=== PATIENT | male | born 1940 | race Caucasian/White ===

== ENCOUNTER 2017-12-23 16:37 | Emergency (ER) | payer MEDICARE ==
[~2017-12-23] VITALS: Ht 170.2 cm; Wt 70.5 kg
[~2017-12-23 16:37] MED LIST: DIABETES PILL; HYDR-757
[2017-12-23 16:44] VITALS: BP 118/59
[2017-12-23] MEDS ORDERED: FOLI-17 PO (19:31)
[2017-12-23] MEDS ORDERED: DIGO250T PO (19:31)
[2017-12-23] MEDS ORDERED: LISINOPRIL PO (19:31)
[2017-12-23] MEDS ORDERED: ATOR-2 PO (19:31)
[2017-12-23] MEDS ORDERED: SPIR25TA3 PO (19:33)
[2017-12-23] MEDS ORDERED: WARF4TAB65 PO (19:33)
== END 2017-12-23 18:05 ==
LOC: MERGE 16:37 → ED 17:59
DX: Z02.9 Encounter for administrative examinations, unspecified (principal)

== ENCOUNTER 2017-12-23 16:47 | Inpatient (IN) | payer MEDICARE, MEDICAID ==
[~2017-12-23] VITALS: Ht 170.2 cm; Wt 67.8 kg
[2017-12-23] MEDS ORDERED: SODIUM CHLORIDE 0.9% 1,000 ML IV ONE (17:01)
[2017-12-23] MEDS ORDERED: SODIUM CHLORIDE FLUSH 10ML SYR IVF ONE (17:30)
[2017-12-23 17:51] LABS: BASOPHILS # (AUTO) 0.02 x10^3/uL (0-0.1); BASOPHILS % (AUTO) 0 % (0-1); EOSINOPHILS # (AUTO) 0.04 x10^3/uL (0-0.4); EOSINOPHILS % (AUTO) 0 % (1-7); LYMPHOCYTES # (AUTO) 1.08 x10^3/uL (1-3.4); LYMPHOCYTES % (AUTO) 9 % (22-44); MD NO; MEAN CORPUSCULAR HEMOGLOBIN 32.7 pg (27.5-34.5); MEAN CORPUSCULAR HGB CONC 33.7 g/dL (33.2-36.2); MEAN CORPUSCULAR VOLUME 96.9 fL (81-97); MEAN PLATELET VOLUME 7.5 fL (7.4-10.4); MONOCYTES # (AUTO) 1.22 x10^3/uL (0.2-0.8); MONOCYTES % (AUTO) 10 % (2-9); NEUTROPHILS # (AUTO) 9.63 x10^3/uL (1.8-6.8); NEUTROPHILS % (AUTO) 80 % (42-75); PLATELET COUNT 225 x10^3/uL (130-400); RED BLOOD COUNT 4.52 x10^6/uL (4.38-5.82); RED CELL DISTRIBUTION WIDTH 15.2 % (9.4-14.8)
[2017-12-23 17:58] LABS: INTERNATIONAL NORMALIZED RATIO 1.16 (0.93-1.1); PROTHROMBIN TIME 11.9 Seconds (9.6-11.5)
[2017-12-23 18:01] LABS: ALANINE AMINOTRANSFERASE 34 U/L (12-78); ALBUMIN 3.1 g/dL (3.4-5.0); ANION GAP 8 mmol/L (5-15); CALCIUM 8.3 mg/dL (8.5-10.1); CHLORIDE 98 mmol/L (98-107)
[2017-12-23 18:16] LABS: ALKALINE PHOSPHATASE 135 U/L (45-117); BILIRUBIN,TOTAL 2.5 mg/dL (0.2-1.0); CREATININE 0.97 mg/dL (0.7-1.3); THYROID STIMULATING HORMONE 0.828 mIU/L (0.358-3.740); TOTAL PROTEIN 6.8 g/dL (6.4-8.2)
[2017-12-23 18:55] LABS: CULTURE INDICATED? YES; MICROSCOPIC INDICATED
[2017-12-23] MEDS ORDERED: MAGNESIUM SULFATE 2 GM in SODIUM CHLORIDE 0.9% 50 ML IV ONE (19:00)
[2017-12-23] MEDS ORDERED: ATOR-2 PO (19:31)
[2017-12-23] MEDS ORDERED: DIGO250T PO (19:31)
[2017-12-23] MEDS ORDERED: FOLI-17 PO (19:31)
[2017-12-23] MEDS ORDERED: LISINOPRIL PO (19:31)
[2017-12-23] MEDS ORDERED: SPIR25TA3 PO (19:33)
[2017-12-23] MEDS ORDERED: WARF4TAB65 PO (19:33)
[2017-12-23] MEDS ORDERED: PIPERACILLIN/TAZO/PMX 3.375GM 50 ML ONE (19:42)
[2017-12-23] MEDS ORDERED: PIPERACILLIN/TAZO/PMX 3.375GM 50 ML IV ONE (20:00)
[2017-12-23] MEDS ORDERED: ONDANSETRON 2MG/ML, 2ML IVPush PRN (20:00)
[2017-12-23] MEDS ORDERED: BISACODYL 10 MG SUPP PR PRN (20:00)
[2017-12-23] MEDS ORDERED: DOCUSATE 100 MG CAPSULE PO PRN (20:00)
[2017-12-23] MEDS ORDERED: ACETAMINOPHEN 325 MG TABLET PO PRN (20:00)
[2017-12-23] MEDS ORDERED: hydrALAzine 20 MG/ML, 1ML IVPush PRN (20:00)
[2017-12-23 21:21] LABS: FOLATE LEVEL > 20.0 ng/mL (3.1-17.5)
[2017-12-23 21:30] VITALS: BP 106/60
[2017-12-23] MEDS: ATORVASTATIN 80 MG TABLET PO SCH ×2 (22:35→22:57)
[2017-12-23] MEDS: SODIUM CHLORIDE FLUSH 10ML SYR IVF SCH (22:36)
[2017-12-23] MEDS: WARFARIN 5 MG TABLET PO-COUM ONE ×2 (22:36→22:57)
[2017-12-24] MEDS: CEFTRIAXONE PMX 1GM/50ML 50 ML IV SCH (00:56)
[2017-12-24] MEDS: DOXYCYCLINE 100 MG in DEXTROSE 5% 250 ML IV SCH ×2 (01:43→14:03)
[2017-12-24 02:18] VITALS: BP 134/78
[2017-12-24 05:45] LABS: BASOPHILS # (AUTO) 0.03 x10^3/uL (0-0.1); BASOPHILS % (AUTO) 0 % (0-1); EOSINOPHILS # (AUTO) 0.09 x10^3/uL (0-0.4); EOSINOPHILS % (AUTO) 1 % (1-7); LYMPHOCYTES # (AUTO) 1.05 x10^3/uL (1-3.4); LYMPHOCYTES % (AUTO) 11 % (22-44); MD NO; MEAN CORPUSCULAR HEMOGLOBIN 33.1 pg (27.5-34.5); MEAN CORPUSCULAR HGB CONC 34.6 g/dL (33.2-36.2); MEAN CORPUSCULAR VOLUME 95.7 fL (81-97); MONOCYTES # (AUTO) 1.24 x10^3/uL (0.2-0.8); MONOCYTES % (AUTO) 13 % (2-9); NEUTROPHILS % (AUTO) 75 % (42-75); PLATELET COUNT 192 x10^3/uL (130-400); RED BLOOD COUNT 3.97 x10^6/uL (4.38-5.82); RED CELL DISTRIBUTION WIDTH 14.8 % (9.4-14.8)
[2017-12-24 05:50] LABS: INTERNATIONAL NORMALIZED RATIO 1.16 (0.93-1.1); PROTHROMBIN TIME 11.9 Seconds (9.6-11.5)
[2017-12-24 05:54] LABS: ALBUMIN 2.7 g/dL (3.4-5.0); ANION GAP 10 mmol/L (5-15); CALCIUM 7.9 mg/dL (8.5-10.1); CHLORIDE 100 mmol/L (98-107)
[2017-12-24 05:55] VITALS: BP 115/63
[2017-12-24 05:58] LABS: ALANINE AMINOTRANSFERASE 28 U/L (12-78); ALKALINE PHOSPHATASE 112 U/L (45-117); CREATININE 0.79 mg/dL (0.7-1.3); TOTAL PROTEIN 5.9 g/dL (6.4-8.2)
[2017-12-24 07:54] VITALS: BP 94/54
[2017-12-24] MEDS: DIGOXIN 0.25 MG TABLET PO SCH (09:00)
[2017-12-24] MEDS: SPIRONOLACTONE 25 MG TABLET PO SCH (09:00)
[2017-12-24] MEDS: SODIUM CHLORIDE FLUSH 10ML SYR IVF SCH ×2 (09:00→21:17)
[2017-12-24] MEDS ORDERED: TEMPLATE NON-FORMULARY MED. (Warfarin Sodium** 4 MG) PO SCH (09:00)
[2017-12-24] MEDS: FOLIC ACID 1 MG TABLET PO SCH (09:00)
[2017-12-24 12:20] VITALS: BP 107/65
[2017-12-24] MEDS ORDERED: WARFARIN 5 MG TABLET PO-COUM SCH (18:00)
[2017-12-24 20:55] VITALS: BP 105/67
[2017-12-24] MEDS: ATORVASTATIN 80 MG TABLET PO SCH (21:00)
[2017-12-25 01:30] VITALS: BP 105/67
[2017-12-25] MEDS: CEFTRIAXONE PMX 1GM/50ML 50 ML IV SCH (01:33)
[2017-12-25] MEDS: DOXYCYCLINE 100 MG in DEXTROSE 5% 250 ML IV SCH ×2 (02:38→12:24)
[2017-12-25 04:52] VITALS: BP 103/65
[2017-12-25 05:54] LABS: INTERNATIONAL NORMALIZED RATIO 1.19 (0.93-1.1); PROTHROMBIN TIME 12.2 Seconds (9.6-11.5)
[2017-12-25 06:21] LABS: CHLORIDE 98 mmol/L (98-107)
[2017-12-25 06:38] LABS: ALANINE AMINOTRANSFERASE 33 U/L (12-78); ALBUMIN 2.7 g/dL (3.4-5.0); ALKALINE PHOSPHATASE 114 U/L (45-117); ANION GAP 9 mmol/L (5-15); BILIRUBIN,TOTAL 1.5 mg/dL (0.2-1.0); CALCIUM 7.9 mg/dL (8.5-10.1); TOTAL PROTEIN 6.1 g/dL (6.4-8.2)
[2017-12-25 06:40] VITALS: BP 98/59
[2017-12-25] MEDS: FOLIC ACID 1 MG TABLET PO SCH (08:53)
[2017-12-25] MEDS: DIGOXIN 0.25 MG TABLET PO SCH (08:53)
[2017-12-25] MEDS: SODIUM CHLORIDE FLUSH 10ML SYR IVF SCH ×2 (08:53→21:00)
[2017-12-25] MEDS: SPIRONOLACTONE 25 MG TABLET PO SCH (08:53)
[2017-12-25] MEDS: SODIUM CHLORIDE 0.9% 1,000 ML IV SCH (09:48)
[2017-12-25 12:47] VITALS: BP 116/70
[2017-12-25] MEDS: ENOXAPARIN 60 MG/0.6 ML SQ SCH (17:13)
[2017-12-25] MEDS ORDERED: WARFARIN 7.5 MG TABLET PO-COUM ONE (18:00)
[2017-12-25] MEDS: ATORVASTATIN 80 MG TABLET PO SCH (20:00)
[2017-12-25 20:50] VITALS: BP 111/67
[2017-12-26] MEDS: DOXYCYCLINE 100 MG in DEXTROSE 5% 250 ML IV SCH ×2 (00:41→11:55)
[2017-12-26 00:54] VITALS: BP 99/63
[2017-12-26] MEDS: CEFTRIAXONE PMX 1GM/50ML 50 ML IV SCH (01:44)
[2017-12-26] MEDS: ENOXAPARIN 60 MG/0.6 ML SQ SCH ×2 (05:29→17:27)
[2017-12-26 06:32] LABS: INTERNATIONAL NORMALIZED RATIO 1.28 (0.93-1.1); PROTHROMBIN TIME 13.1 Seconds (9.6-11.5)
[2017-12-26 06:45] VITALS: BP 115/67
[2017-12-26] MEDS: SODIUM CHLORIDE 0.9% 1,000 ML IV SCH (08:22)
[2017-12-26] MEDS: DIGOXIN 0.25 MG TABLET PO SCH ×2 (08:22→09:44)
[2017-12-26] MEDS: SPIRONOLACTONE 25 MG TABLET PO SCH ×2 (08:22→09:44)
[2017-12-26] MEDS: SODIUM CHLORIDE FLUSH 10ML SYR IVF SCH ×2 (08:22→20:49)
[2017-12-26] MEDS: FOLIC ACID 1 MG TABLET PO SCH ×2 (08:22→09:44)
[2017-12-26] MEDS: METHYLPHENIDATE 10 MG TABLET PO SCH ×2 (08:22→09:00)
[2017-12-26 12:39] VITALS: BP 111/70
[2017-12-26] MEDS ORDERED: WARFARIN 7.5 MG TABLET PO-COUM ONE (18:00)
[2017-12-26 19:06] VITALS: BP 114/69
[2017-12-26] MEDS: ATORVASTATIN 80 MG TABLET PO SCH (20:49)
[2017-12-27] MEDS: DOXYCYCLINE 100 MG in DEXTROSE 5% 250 ML IV SCH ×2 (00:30→12:14)
[2017-12-27] MEDS: CEFTRIAXONE PMX 1GM/50ML 50 ML IV SCH (01:34)
[2017-12-27] MEDS: SODIUM CHLORIDE 0.9% 1,000 ML IV SCH ×2 (01:35→21:43)
[2017-12-27 02:05] VITALS: BP 108/63
[2017-12-27] MEDS: ENOXAPARIN 60 MG/0.6 ML SQ SCH ×2 (04:35→17:41)
[2017-12-27 06:05] LABS: INTERNATIONAL NORMALIZED RATIO 1.53 (0.93-1.1); PROTHROMBIN TIME 15.6 Seconds (9.6-11.5)
[2017-12-27] MEDS ORDERED: BISACODYL 10 MG SUPP PR ONE (08:00)
[2017-12-27 08:12] VITALS: BP 112/74
[2017-12-27] MEDS: DIGOXIN 0.25 MG TABLET PO SCH (08:53)
[2017-12-27] MEDS: SODIUM CHLORIDE FLUSH 10ML SYR IVF SCH ×2 (08:54→21:43)
[2017-12-27] MEDS: FOLIC ACID 1 MG TABLET PO SCH (08:54)
[2017-12-27] MEDS: METHYLPHENIDATE 10 MG TABLET PO SCH (08:54)
[2017-12-27] MEDS ORDERED: METHYLPHENIDATE 10 MG TABLET PO ONE (13:30)
[2017-12-27 13:38] VITALS: BP 118/83
[2017-12-27] MEDS ORDERED: WARFARIN 7.5 MG TABLET PO-COUM ONE (18:00)
[2017-12-27 20:00] VITALS: BP 122/77
[2017-12-27] MEDS: ATORVASTATIN 80 MG TABLET PO SCH (21:43)
[2017-12-28] MEDS: DOXYCYCLINE 100 MG in DEXTROSE 5% 250 ML IV SCH (00:19)
[2017-12-28] MEDS: CEFTRIAXONE PMX 1GM/50ML 50 ML IV SCH (01:37)
[2017-12-28 02:00] VITALS: BP 145/82
[2017-12-28 05:35] LABS: INTERNATIONAL NORMALIZED RATIO 1.8 (0.93-1.1); PROTHROMBIN TIME 18.3 Seconds (9.6-11.5)
[2017-12-28] MEDS: ENOXAPARIN 60 MG/0.6 ML SQ SCH ×2 (06:17→17:30)
[2017-12-28 08:00] VITALS: BP 103/63
[2017-12-28] MEDS: SODIUM CHLORIDE FLUSH 10ML SYR IVF SCH ×2 (08:47→21:28)
[2017-12-28] MEDS: METHYLPHENIDATE 10 MG TABLET PO SCH (08:47)
[2017-12-28] MEDS: FOLIC ACID 1 MG TABLET PO SCH (08:47)
[2017-12-28] MEDS ORDERED: METHYLPHENIDATE 10 MG TABLET PO SCH (09:00)
[2017-12-28 12:26] VITALS: BP 115/70
[2017-12-28] MEDS: SODIUM CHLORIDE 0.9% 1,000 ML IV SCH (16:30)
[2017-12-28] MEDS: CARVEDILOL 3.125 MG TABLET PO SCH (17:38)
[2017-12-28] MEDS: LEVETIRACETAM 1,000 MG in SODIUM CHLORIDE 0.9% 100 ML IV SCH (17:56)
[2017-12-28] MEDS ORDERED: WARFARIN 7.5 MG TABLET PO-COUM ONE (18:00)
[2017-12-28] MEDS: ATORVASTATIN 80 MG TABLET PO SCH (21:28)
[2017-12-29] MEDS: LEVETIRACETAM 1,000 MG in SODIUM CHLORIDE 0.9% 100 ML IV SCH ×2 (04:56→17:53)
[2017-12-29 04:59] LABS: INTERNATIONAL NORMALIZED RATIO 1.84 (0.93-1.1); PROTHROMBIN TIME 18.7 Seconds (9.6-11.5)
[2017-12-29] MEDS ORDERED: ENOXAPARIN 100 MG/ML ONE (05:18)
[2017-12-29] MEDS: ENOXAPARIN 60 MG/0.6 ML SQ SCH ×2 (05:46→17:30)
[2017-12-29] MEDS: CARVEDILOL 3.125 MG TABLET PO SCH ×2 (05:47→17:53)
[2017-12-29] MEDS: SODIUM CHLORIDE 0.9% 1,000 ML IV SCH (08:09)
[2017-12-29] MEDS: METHYLPHENIDATE 10 MG TABLET PO SCH (09:00)
[2017-12-29] MEDS: FOLIC ACID 1 MG TABLET PO SCH (09:00)
[2017-12-29] MEDS: SODIUM CHLORIDE FLUSH 10ML SYR IVF SCH ×2 (17:47→21:10)
[2017-12-29] MEDS ORDERED: WARFARIN 10 MG TABLET PO-COUM ONE (18:00)
[2017-12-29] MEDS: ATORVASTATIN 80 MG TABLET PO SCH (21:09)
[2017-12-30] MEDS: SODIUM CHLORIDE 0.9% 1,000 ML IV SCH ×2 (02:23→09:06)
[2017-12-30] MEDS: LEVETIRACETAM 1,000 MG in SODIUM CHLORIDE 0.9% 100 ML IV SCH (04:54)
[2017-12-30 05:00] VITALS: BP 94/48
[2017-12-30 05:05] LABS: INTERNATIONAL NORMALIZED RATIO 2.85 (0.93-1.1); PROTHROMBIN TIME 28.8 Seconds (9.6-11.5)
[2017-12-30 05:08] LABS: ANION GAP 6 mmol/L (5-15); CALCIUM 7.9 mg/dL (8.5-10.1); CHLORIDE 107 mmol/L (98-107); CREATININE 0.59 mg/dL (0.7-1.3)
[2017-12-30 05:12] LABS: BASOPHILS # (AUTO) 0.07 x10^3/uL (0-0.1); BASOPHILS % (AUTO) 1 % (0-1); EOSINOPHILS # (AUTO) 0.56 x10^3/uL (0-0.4); EOSINOPHILS % (AUTO) 8 % (1-7); LYMPHOCYTES # (AUTO) 1.47 x10^3/uL (1-3.4); LYMPHOCYTES % (AUTO) 21 % (22-44); MD NO; MEAN CORPUSCULAR HEMOGLOBIN 33.4 pg (27.5-34.5); MEAN CORPUSCULAR HGB CONC 34.4 g/dL (33.2-36.2); MONOCYTES # (AUTO) 0.66 x10^3/uL (0.2-0.8); MONOCYTES % (AUTO) 9 % (2-9); NEUTROPHILS # (AUTO) 4.28 x10^3/uL (1.8-6.8); NEUTROPHILS % (AUTO) 61 % (42-75); PLATELET COUNT 211 x10^3/uL (130-400); RED BLOOD COUNT 3.66 x10^6/uL (4.38-5.82); RED CELL DISTRIBUTION WIDTH 15.1 % (9.4-14.8)
[2017-12-30] MEDS ORDERED: ENOXAPARIN 100 MG/ML ONE (06:08)
[2017-12-30] MEDS: ENOXAPARIN 60 MG/0.6 ML SQ SCH (06:10)
[2017-12-30] MEDS ORDERED: SODIUM CHLORIDE 0.9%, 500ML IVBOLUS ONE ×2 (07:30→09:30)
[2017-12-30] MEDS: SODIUM CHLORIDE FLUSH 10ML SYR IVF SCH ×2 (09:05→21:07)
[2017-12-30] MEDS: LEVETIRACETAM 500 MG in SODIUM CHLORIDE 0.9% 100 ML IV SCH (16:50)
[2017-12-30] MEDS ORDERED: WARFARIN 5 MG TABLET PO-COUM ONE (18:00)
[2017-12-30] MEDS: ATORVASTATIN 80 MG TABLET PO SCH (21:07)
[2017-12-31] MEDS: LEVETIRACETAM 500 MG in SODIUM CHLORIDE 0.9% 100 ML IV SCH (04:37)
[2017-12-31] MEDS: SODIUM CHLORIDE 0.9% 1,000 ML IV SCH (04:37)
[2017-12-31 04:48] LABS: INTERNATIONAL NORMALIZED RATIO 4.05 (0.93-1.1); PROTHROMBIN TIME 40.6 Seconds (9.6-11.5)
[2017-12-31 06:23] VITALS: BP 94/68
[2017-12-31] MEDS: LEVETIRACETAM 500 MG TABLET PO SCH ×2 (09:27→20:57)
[2017-12-31] MEDS: SODIUM CHLORIDE FLUSH 10ML SYR IVF SCH ×2 (09:27→20:57)
[2017-12-31] MEDS: FOLIC ACID 1 MG TABLET NG SCH (09:27)
[2017-12-31 13:05] VITALS: BP 106/64
[2017-12-31 19:26] VITALS: BP 120/77
[2017-12-31] MEDS: ATORVASTATIN 80 MG TABLET PO SCH (20:57)
[2017-12-31 23:02] VITALS: BP 110/67
[2018-01-01 01:05] VITALS: BP 118/75
[2018-01-01] MEDS: SODIUM CHLORIDE 0.9% 1,000 ML IV SCH (04:29)
[2018-01-01 05:12] LABS: INTERNATIONAL NORMALIZED RATIO 2.55 (0.93-1.1); PROTHROMBIN TIME 25.8 Seconds (9.6-11.5)
[2018-01-01 07:11] VITALS: BP 147/93
[2018-01-01] MEDS: FOLIC ACID 1 MG TABLET NG SCH (08:25)
[2018-01-01] MEDS: LEVETIRACETAM 500 MG TABLET PO SCH ×2 (08:26→20:33)
[2018-01-01] MEDS: SODIUM CHLORIDE FLUSH 10ML SYR IVF SCH ×2 (08:27→20:33)
[2018-01-01 12:38] VITALS: BP 108/69
[2018-01-01] MEDS ORDERED: WARFARIN 2 MG TABLET PO-COUM ONE (18:00)
[2018-01-01 19:19] VITALS: BP 112/64
[2018-01-01] MEDS: ATORVASTATIN 80 MG TABLET PO SCH (20:33)
[2018-01-02 01:08] VITALS: BP 107/70
[2018-01-02] MEDS: POLYETHYLENE GLYCOL 17 GM PACKET PO PRN (03:10)
[2018-01-02 05:10] LABS: INTERNATIONAL NORMALIZED RATIO 1.52 (0.93-1.1); PROTHROMBIN TIME 15.5 Seconds (9.6-11.5)
[2018-01-02 05:15] LABS: ANION GAP 5 mmol/L (5-15); CALCIUM 7.9 mg/dL (8.5-10.1); CHLORIDE 98 mmol/L (98-107)
[2018-01-02 05:16] LABS: CREATININE 0.56 mg/dL (0.7-1.3)
[2018-01-02 05:24] LABS: BASOPHILS # (AUTO) 0.04 x10^3/uL (0-0.1); BASOPHILS % (AUTO) 1 % (0-1); EOSINOPHILS # (AUTO) 0.52 x10^3/uL (0-0.4); EOSINOPHILS % (AUTO) 6 % (1-7); LYMPHOCYTES # (AUTO) 1.18 x10^3/uL (1-3.4); LYMPHOCYTES % (AUTO) 13 % (22-44); MD NO; MEAN CORPUSCULAR HEMOGLOBIN 32.9 pg (27.5-34.5); MEAN CORPUSCULAR HGB CONC 34.1 g/dL (33.2-36.2); MEAN CORPUSCULAR VOLUME 96.5 fL (81-97); MEAN PLATELET VOLUME 7.4 fL (7.4-10.4); MONOCYTES # (AUTO) 0.99 x10^3/uL (0.2-0.8); MONOCYTES % (AUTO) 11 % (2-9); NEUTROPHILS # (AUTO) 6.47 x10^3/uL (1.8-6.8); NEUTROPHILS % (AUTO) 70 % (42-75); PLATELET COUNT 223 x10^3/uL (130-400); RED BLOOD COUNT 3.88 x10^6/uL (4.38-5.82)
[2018-01-02 06:55] VITALS: BP 116/65
[2018-01-02] MEDS: SODIUM CHLORIDE FLUSH 10ML SYR IVF SCH ×2 (09:00→23:01)
[2018-01-02] MEDS: LEVETIRACETAM 500 MG TABLET PO SCH ×2 (10:13→22:43)
[2018-01-02] MEDS: FOLIC ACID 1 MG TABLET NG SCH (10:13)
[2018-01-02 12:46] VITALS: BP 107/67
[2018-01-02] MEDS ORDERED: PHENYTOIN SODIUM 1,000 MG in SODIUM CHLORIDE 0.9% 100 ML IV ONE (13:00)
[2018-01-02] MEDS ORDERED: FILTER 0.22 MICRON FOR PHENYTOIN IV PRN (13:30)
[2018-01-02] MEDS ORDERED: WARFARIN 7.5 MG TABLET PO-COUM ONE (18:00)
[2018-01-02 19:25] VITALS: BP 97/66
[2018-01-02] MEDS ORDERED: PHENYTOIN 100 MG CAPSULE PO SCH (21:00)
[2018-01-02] MEDS ORDERED: PHENYTOIN 125 MG/5 ML ORAL SUSP PO SCH (21:00)
[2018-01-02] MEDS: ATORVASTATIN 80 MG TABLET PO SCH (22:43)
[2018-01-02] MEDS: LORazepam 2 MG/ML, 1ML IVPush PRN (23:01)
[2018-01-02 23:35] LABS: ALANINE AMINOTRANSFERASE 55 U/L (12-78); ALBUMIN 2.5 g/dL (3.4-5.0); ANION GAP 5 mmol/L (5-15); CALCIUM 8.1 mg/dL (8.5-10.1); CHLORIDE 100 mmol/L (98-107); CREATININE 0.56 mg/dL (0.7-1.3)
[2018-01-02 23:36] LABS: BASOPHILS # (AUTO) 0.04 x10^3/uL (0-0.1); BASOPHILS % (AUTO) 0 % (0-1); EOSINOPHILS # (AUTO) 0.39 x10^3/uL (0-0.4); EOSINOPHILS % (AUTO) 4 % (1-7); LYMPHOCYTES # (AUTO) 1.27 x10^3/uL (1-3.4); LYMPHOCYTES % (AUTO) 13 % (22-44); MD NO; MEAN CORPUSCULAR HEMOGLOBIN 32.8 pg (27.5-34.5); MEAN CORPUSCULAR HGB CONC 33.7 g/dL (33.2-36.2); MEAN CORPUSCULAR VOLUME 97.2 fL (81-97); MEAN PLATELET VOLUME 7.1 fL (7.4-10.4); MONOCYTES # (AUTO) 0.88 x10^3/uL (0.2-0.8); MONOCYTES % (AUTO) 9 % (2-9); NEUTROPHILS # (AUTO) 7.09 x10^3/uL (1.8-6.8); NEUTROPHILS % (AUTO) 73 % (42-75); PLATELET COUNT 285 x10^3/uL (130-400); RED BLOOD COUNT 3.89 x10^6/uL (4.38-5.82); RED CELL DISTRIBUTION WIDTH 14.9 % (9.4-14.8)
[2018-01-02 23:37] LABS: ALKALINE PHOSPHATASE 129 U/L (45-117); BILIRUBIN,TOTAL 0.5 mg/dL (0.2-1.0); TOTAL PROTEIN 5.6 g/dL (6.4-8.2)
[2018-01-03] MEDS ORDERED: LEVETIRACETAM 1,000 MG in SODIUM CHLORIDE 0.9% 100 ML IV SCH (00:30)
[2018-01-03] MEDS ORDERED: PROPOFOL 100 ML IV ONE (00:40)
[2018-01-03] MEDS ORDERED: SODIUM CHLORIDE 0.9% 1,000ML IVBOLUS ONE ×2 (01:00→05:30)
[2018-01-03] MEDS ORDERED: LIDOCAINE-MPF 1%, 2ML ENDO PRN (01:00)
[2018-01-03] MEDS ORDERED: LACTULOSE 20 GM/30 ML UDC NG PRN (01:00)
[2018-01-03] MEDS ORDERED: SENNA/DOCUSATE TABLET NG PRN (01:00)
[2018-01-03] MEDS ORDERED: SENNOSIDES 8.8 MG/5 ML ORAL SOL NG PRN (01:00)
[2018-01-03] MEDS ORDERED: BISACODYL 10 MG SUPP PR PRN (01:00)
[2018-01-03] MEDS ORDERED: PHARMACY MAY ADJ FOR RENAL FX MC SCH (01:00)
[2018-01-03] MEDS: FENTANYL PF 100 MCG/2ML IVPush PRN (01:13)
[2018-01-03] MEDS: ALBUTEROL/IPRATROPIUM 2.5MG/0.5MG, 3 ML INLINE SCH ×6 (01:40→23:04)
[2018-01-03] MEDS: PROPOFOL 100 ML IV PRN ×2 (01:47→18:25)
[2018-01-03] MEDS: AMPICILLIN/SULBACTAM 3 GM in SODIUM CHLORIDE 0.9% 100 ML IV SCH ×4 (02:12→18:25)
[2018-01-03 04:00] VITALS: BP 102/69
[2018-01-03 05:51] LABS: BASOPHILS # (AUTO) 0.05 x10^3/uL (0-0.1); BASOPHILS % (AUTO) 1 % (0-1); EOSINOPHILS % (AUTO) 4 % (1-7); LYMPHOCYTES # (AUTO) 1.55 x10^3/uL (1-3.4); LYMPHOCYTES % (AUTO) 14 % (22-44); MD NO; MEAN CORPUSCULAR HEMOGLOBIN 32.6 pg (27.5-34.5); MEAN CORPUSCULAR HGB CONC 33.7 g/dL (33.2-36.2); MEAN CORPUSCULAR VOLUME 96.8 fL (81-97); MEAN PLATELET VOLUME 7.2 fL (7.4-10.4); MONOCYTES # (AUTO) 1.13 x10^3/uL (0.2-0.8); MONOCYTES % (AUTO) 10 % (2-9); NEUTROPHILS # (AUTO) 7.95 x10^3/uL (1.8-6.8); NEUTROPHILS % (AUTO) 72 % (42-75); PLATELET COUNT 246 x10^3/uL (130-400); RED BLOOD COUNT 3.92 x10^6/uL (4.38-5.82); RED CELL DISTRIBUTION WIDTH 15.1 % (9.4-14.8)
[2018-01-03 05:59] LABS: ALANINE AMINOTRANSFERASE 51 U/L (12-78); ALBUMIN 2.5 g/dL (3.4-5.0); ANION GAP 7 mmol/L (5-15); CALCIUM 8.1 mg/dL (8.5-10.1); CHLORIDE 102 mmol/L (98-107); CREATININE 0.69 mg/dL (0.7-1.3)
[2018-01-03 06:01] LABS: INTERNATIONAL NORMALIZED RATIO 1.35 (0.93-1.1); PROTHROMBIN TIME 13.8 Seconds (9.6-11.5)
[2018-01-03 06:02] LABS: ALKALINE PHOSPHATASE 113 U/L (45-117); BILIRUBIN,TOTAL 0.7 mg/dL (0.2-1.0); TOTAL PROTEIN 5.6 g/dL (6.4-8.2)
[2018-01-03] MEDS ORDERED: MIDAZOLAM 1 MG/ML, 5ML ONE ×2 (08:00→13:32)
[2018-01-03] MEDS ORDERED: SUCCINYLCHOLINE 20 MG/ML, 10ML ONE (08:00)
[2018-01-03] MEDS: FOLIC ACID 1 MG TABLET NG SCH (08:26)
[2018-01-03] MEDS: SODIUM CHLORIDE FLUSH 10ML SYR IVF SCH ×2 (08:26→20:10)
[2018-01-03] MEDS: PANTOPRAZOLE 40 MG IV IV SCH (08:26)
[2018-01-03] MEDS: LEVETIRACETAM 750 MG in SODIUM CHLORIDE 0.9% 100 ML IV SCH ×2 (12:34→23:33)
[2018-01-03] MEDS ORDERED: MIDAZOLAM 1 MG/ML, 5ML IVPush ONE (13:30)
[2018-01-03] MEDS ORDERED: GADOBUTROL 7.5 MMOL/7.5 ML VIAL ONE (14:11)
[2018-01-03] MEDS ORDERED: WARFARIN 7.5 MG TABLET PO-COUM ONE (18:00)
[2018-01-03] MEDS ORDERED: LACTATED RINGERS 1,000 ML IVBOLUS ONE (19:30)
[2018-01-03] MEDS: ATORVASTATIN 80 MG TABLET PO SCH (20:09)
[2018-01-04] MEDS: AMPICILLIN/SULBACTAM 3 GM in SODIUM CHLORIDE 0.9% 100 ML IV SCH ×4 (01:21→18:12)
[2018-01-04] MEDS: ALBUTEROL/IPRATROPIUM 2.5MG/0.5MG, 3 ML INLINE SCH ×6 (03:00→22:24)
[2018-01-04] MEDS: LORazepam 2 MG/ML, 1ML IVPush PRN (03:45)
[2018-01-04 04:43] LABS: BASOPHILS # (AUTO) 0.02 x10^3/uL (0-0.1); BASOPHILS % (AUTO) 0 % (0-1); EOSINOPHILS # (AUTO) 0.26 x10^3/uL (0-0.4); EOSINOPHILS % (AUTO) 3 % (1-7); LYMPHOCYTES # (AUTO) 1.34 x10^3/uL (1-3.4); LYMPHOCYTES % (AUTO) 15 % (22-44); MD NO; MEAN CORPUSCULAR HGB CONC 33.8 g/dL (33.2-36.2); MEAN CORPUSCULAR VOLUME 97.5 fL (81-97); MEAN PLATELET VOLUME 7.3 fL (7.4-10.4); MONOCYTES # (AUTO) 0.82 x10^3/uL (0.2-0.8); MONOCYTES % (AUTO) 9 % (2-9); NEUTROPHILS # (AUTO) 6.68 x10^3/uL (1.8-6.8); NEUTROPHILS % (AUTO) 73 % (42-75); PLATELET COUNT 261 x10^3/uL (130-400); RED BLOOD COUNT 3.47 x10^6/uL (4.38-5.82)
[2018-01-04 04:49] LABS: ALBUMIN 2.3 g/dL (3.4-5.0); ANION GAP 9 mmol/L (5-15); CALCIUM 7.9 mg/dL (8.5-10.1); CHLORIDE 109 mmol/L (98-107)
[2018-01-04 04:53] LABS: ALANINE AMINOTRANSFERASE 42 U/L (12-78); ALKALINE PHOSPHATASE 115 U/L (45-117); BILIRUBIN,TOTAL 0.9 mg/dL (0.2-1.0); CREATININE 0.73 mg/dL (0.7-1.3); TOTAL PROTEIN 5.2 g/dL (6.4-8.2)
[2018-01-04 05:12] LABS: INTERNATIONAL NORMALIZED RATIO 1.53 (0.93-1.1); PROTHROMBIN TIME 15.6 Seconds (9.6-11.5)
[2018-01-04] MEDS: SODIUM CHLORIDE FLUSH 10ML SYR IVF SCH ×2 (09:00→21:48)
[2018-01-04] MEDS: PANTOPRAZOLE 40 MG IV IV SCH (09:53)
[2018-01-04] MEDS: FOLIC ACID 1 MG TABLET NG SCH (09:53)
[2018-01-04] MEDS ORDERED: SODIUM CHLORIDE 0.9% 1,000ML IVBOLUS ONE (10:30)
[2018-01-04] MEDS: LEVETIRACETAM 750 MG in SODIUM CHLORIDE 0.9% 100 ML IV SCH (12:52)
[2018-01-04] MEDS ORDERED: NOREPINEPHRINE 4 MG in SODIUM CHLORIDE 0.9% 246 ML IV PRN (15:30)
[2018-01-04] MEDS ORDERED: WARFARIN 7.5 MG TABLET PO-COUM SCH (18:00)
[2018-01-04] MEDS: ATORVASTATIN 80 MG TABLET PO SCH (21:48)
[2018-01-04] MEDS: PROPOFOL 100 ML IV PRN (22:42)
[2018-01-05] MEDS: AMPICILLIN/SULBACTAM 3 GM in SODIUM CHLORIDE 0.9% 100 ML IV SCH ×2 (01:00→08:03)
[2018-01-05] MEDS: LEVETIRACETAM 750 MG in SODIUM CHLORIDE 0.9% 100 ML IV SCH ×2 (01:00→15:03)
[2018-01-05] MEDS: ALBUTEROL/IPRATROPIUM 2.5MG/0.5MG, 3 ML INLINE SCH ×5 (02:22→22:15)
[2018-01-05 04:15] VITALS: BP 98/60
[2018-01-05 04:33] LABS: BASOPHILS # (AUTO) 0.03 x10^3/uL (0-0.1); BASOPHILS % (AUTO) 0 % (0-1); EOSINOPHILS # (AUTO) 0.43 x10^3/uL (0-0.4); EOSINOPHILS % (AUTO) 5 % (1-7); LYMPHOCYTES # (AUTO) 0.96 x10^3/uL (1-3.4); LYMPHOCYTES % (AUTO) 10 % (22-44); MD NO; MEAN CORPUSCULAR HEMOGLOBIN 33.6 pg (27.5-34.5); MEAN CORPUSCULAR HGB CONC 34.3 g/dL (33.2-36.2); MEAN CORPUSCULAR VOLUME 97.8 fL (81-97); MEAN PLATELET VOLUME 7.2 fL (7.4-10.4); MONOCYTES # (AUTO) 0.91 x10^3/uL (0.2-0.8); MONOCYTES % (AUTO) 10 % (2-9); NEUTROPHILS # (AUTO) 6.92 x10^3/uL (1.8-6.8); NEUTROPHILS % (AUTO) 75 % (42-75); PLATELET COUNT 257 x10^3/uL (130-400); RED BLOOD COUNT 3.36 x10^6/uL (4.38-5.82); RED CELL DISTRIBUTION WIDTH 15.7 % (9.4-14.8)
[2018-01-05 04:39] LABS: INTERNATIONAL NORMALIZED RATIO 2.47 (0.93-1.1)
[2018-01-05 04:50] LABS: ANION GAP 4 mmol/L (5-15); CALCIUM 7.7 mg/dL (8.5-10.1); CHLORIDE 109 mmol/L (98-107); CREATININE 0.53 mg/dL (0.7-1.3)
[2018-01-05] MEDS: PANTOPRAZOLE 40 MG IV IV SCH (08:03)
[2018-01-05] MEDS: FOLIC ACID 1 MG TABLET NG SCH (08:04)
[2018-01-05] MEDS: SODIUM CHLORIDE FLUSH 10ML SYR IVF SCH ×2 (08:06→20:53)
[2018-01-05] MEDS ORDERED: DIGOXIN 0.25 MG/ML, 2ML IVPush ONE (17:00)
[2018-01-05] MEDS ORDERED: WARFARIN 1 MG TABLET PO-COUM SCH (18:00)
[2018-01-05] MEDS: ATORVASTATIN 80 MG TABLET PO SCH (20:52)
[2018-01-06] MEDS: LEVETIRACETAM 750 MG in SODIUM CHLORIDE 0.9% 100 ML IV SCH ×2 (01:02→12:41)
[2018-01-06] MEDS: ALBUTEROL/IPRATROPIUM 2.5MG/0.5MG, 3 ML INLINE SCH ×6 (02:09→22:38)
[2018-01-06] MEDS: FENTANYL PF 100 MCG/2ML IVPush PRN ×2 (02:15→02:56)
[2018-01-06 04:00] VITALS: BP 84/42
[2018-01-06 05:39] LABS: INTERNATIONAL NORMALIZED RATIO 2.24 (0.93-1.1); PROTHROMBIN TIME 22.7 Seconds (9.6-11.5)
[2018-01-06 05:47] LABS: ANION GAP 6 mmol/L (5-15); CALCIUM 7.7 mg/dL (8.5-10.1); CHLORIDE 104 mmol/L (98-107)
[2018-01-06 05:49] LABS: BASOPHILS # (AUTO) 0.06 x10^3/uL (0-0.1); BASOPHILS % (AUTO) 1 % (0-1); CREATININE 0.56 mg/dL (0.7-1.3); EOSINOPHILS # (AUTO) 0.44 x10^3/uL (0-0.4); EOSINOPHILS % (AUTO) 5 % (1-7); LYMPHOCYTES # (AUTO) 1.07 x10^3/uL (1-3.4); LYMPHOCYTES % (AUTO) 12 % (22-44); MD NO; MEAN CORPUSCULAR HEMOGLOBIN 33.5 pg (27.5-34.5); MEAN CORPUSCULAR HGB CONC 34.2 g/dL (33.2-36.2); MEAN CORPUSCULAR VOLUME 97.9 fL (81-97); MEAN PLATELET VOLUME 7.4 fL (7.4-10.4); MONOCYTES # (AUTO) 0.93 x10^3/uL (0.2-0.8); MONOCYTES % (AUTO) 10 % (2-9); NEUTROPHILS # (AUTO) 6.56 x10^3/uL (1.8-6.8); NEUTROPHILS % (AUTO) 73 % (42-75); PLATELET COUNT 301 x10^3/uL (130-400); RED CELL DISTRIBUTION WIDTH 15.5 % (9.4-14.8); TRIGLYCERIDES 69 mg/dL (50-200)
[2018-01-06] MEDS: PANTOPRAZOLE 40 MG IV IV SCH (08:52)
[2018-01-06] MEDS: SODIUM CHLORIDE FLUSH 10ML SYR IVF SCH ×2 (08:53→20:32)
[2018-01-06] MEDS: FOLIC ACID 1 MG TABLET NG SCH (08:53)
[2018-01-06] MEDS ORDERED: DIGOXIN 0.25 MG TABLET PO SCH (09:00)
[2018-01-06] MEDS ORDERED: MAGNESIUM SULFATE PMX 2GM/50ML 50 ML IV ONE (09:00)
[2018-01-06] MEDS ORDERED: WARFARIN 2.5 MG TABLET PO-COUM SCH (18:00)
[2018-01-06] MEDS: ATORVASTATIN 80 MG TABLET PO SCH (20:32)
[2018-01-06] MEDS: PROPOFOL 100 ML IV PRN (22:36)
[2018-01-07] MEDS: LEVETIRACETAM 750 MG in SODIUM CHLORIDE 0.9% 100 ML IV SCH ×2 (00:53→12:39)
[2018-01-07] MEDS: ALBUTEROL/IPRATROPIUM 2.5MG/0.5MG, 3 ML INLINE SCH ×4 (03:13→14:47)
[2018-01-07 04:07] VITALS: BP 102/48
[2018-01-07 04:34] LABS: BASOPHILS # (AUTO) 0.09 x10^3/uL (0-0.1); BASOPHILS % (AUTO) 1 % (0-1); EOSINOPHILS # (AUTO) 0.52 x10^3/uL (0-0.4); EOSINOPHILS % (AUTO) 5 % (1-7); LYMPHOCYTES # (AUTO) 1.15 x10^3/uL (1-3.4); LYMPHOCYTES % (AUTO) 11 % (22-44); MD NO; MEAN CORPUSCULAR HEMOGLOBIN 32.7 pg (27.5-34.5); MEAN CORPUSCULAR HGB CONC 33.5 g/dL (33.2-36.2); MEAN CORPUSCULAR VOLUME 97.5 fL (81-97); MEAN PLATELET VOLUME 7.1 fL (7.4-10.4); MONOCYTES # (AUTO) 0.89 x10^3/uL (0.2-0.8); MONOCYTES % (AUTO) 9 % (2-9); NEUTROPHILS # (AUTO) 7.77 x10^3/uL (1.8-6.8); NEUTROPHILS % (AUTO) 75 % (42-75); PLATELET COUNT 308 x10^3/uL (130-400); RED BLOOD COUNT 3.53 x10^6/uL (4.38-5.82); RED CELL DISTRIBUTION WIDTH 15.6 % (9.4-14.8)
[2018-01-07 04:42] LABS: INTERNATIONAL NORMALIZED RATIO 1.49 (0.93-1.1); PROTHROMBIN TIME 15.4 Seconds (9.6-11.5)
[2018-01-07 04:43] LABS: CHLORIDE 106 mmol/L (98-107)
[2018-01-07 04:46] LABS: ANION GAP 6 mmol/L (5-15); CALCIUM 7.9 mg/dL (8.5-10.1); CREATININE 0.56 mg/dL (0.7-1.3)
[2018-01-07] MEDS: FOLIC ACID 1 MG TABLET NG SCH (08:24)
[2018-01-07] MEDS: SODIUM CHLORIDE FLUSH 10ML SYR IVF SCH ×2 (08:24→20:27)
[2018-01-07] MEDS: PANTOPRAZOLE 40 MG IV IV SCH (08:24)
[2018-01-07] MEDS ORDERED: ENOXAPARIN 40 MG/0.4 ML SQ ONE (13:30)
[2018-01-07] MEDS: SODIUM CHLORIDE 0.9% 1,000 ML IV SCH (15:22)
[2018-01-07] MEDS ORDERED: SODIUM CHLORIDE 0.9%, 250ML IVBOLUS ONE (15:30)
[2018-01-07] MEDS ORDERED: WARFARIN 5 MG TABLET PO-COUM SCH (18:00)
[2018-01-07] MEDS ORDERED: METOPROLOL 1 MG/ML, 5ML IVPush ONE (18:30)
[2018-01-07] MEDS: ALBUTEROL/IPRATROPIUM 2.5MG/0.5MG, 3 ML IPPB SCH ×2 (19:00→23:00)
[2018-01-07] MEDS: ATORVASTATIN 80 MG TABLET PO SCH (20:26)
[2018-01-08] MEDS: LEVETIRACETAM 750 MG in SODIUM CHLORIDE 0.9% 100 ML IV SCH ×2 (00:27→13:23)
[2018-01-08] MEDS: ALBUTEROL/IPRATROPIUM 2.5MG/0.5MG, 3 ML IPPB SCH ×6 (03:00→21:49)
[2018-01-08 04:00] VITALS: BP 91/53
[2018-01-08 05:07] LABS: ANION GAP 4 mmol/L (5-15); CALCIUM 8.1 mg/dL (8.5-10.1); CHLORIDE 110 mmol/L (98-107); CREATININE 0.52 mg/dL (0.7-1.3)
[2018-01-08 05:25] LABS: BASOPHILS # (AUTO) 0.02 x10^3/uL (0-0.1); BASOPHILS % (AUTO) 0 % (0-1); EOSINOPHILS % (AUTO) 5 % (1-7); LYMPHOCYTES # (AUTO) 1.09 x10^3/uL (1-3.4); LYMPHOCYTES % (AUTO) 13 % (22-44); MD NO; MEAN CORPUSCULAR HEMOGLOBIN 33.1 pg (27.5-34.5); MEAN CORPUSCULAR VOLUME 97.4 fL (81-97); MEAN PLATELET VOLUME 7.3 fL (7.4-10.4); MONOCYTES # (AUTO) 0.69 x10^3/uL (0.2-0.8); MONOCYTES % (AUTO) 9 % (2-9); NEUTROPHILS # (AUTO) 5.94 x10^3/uL (1.8-6.8); NEUTROPHILS % (AUTO) 73 % (42-75); PLATELET COUNT 307 x10^3/uL (130-400); RED CELL DISTRIBUTION WIDTH 15.4 % (9.4-14.8)
[2018-01-08 05:53] LABS: INTERNATIONAL NORMALIZED RATIO 1.31 (0.93-1.1); PROTHROMBIN TIME 13.6 Seconds (9.6-11.5)
[2018-01-08] MEDS: FOLIC ACID 1 MG TABLET NG SCH (08:08)
[2018-01-08] MEDS: SODIUM CHLORIDE FLUSH 10ML SYR IVF SCH ×2 (08:09→21:06)
[2018-01-08] MEDS ORDERED: DOCUSATE 100 MG CAPSULE PO SCH (09:00)
[2018-01-08] MEDS ORDERED: ENOXAPARIN 40 MG/0.4 ML SQ ONE (10:00)
[2018-01-08] MEDS: DOCUSATE 50 MG/5 ML, 10ML UDC GT SCH ×2 (11:23→21:05)
[2018-01-08] MEDS: PANTOPRAZOLE 40 MG IV IVPush SCH (11:24)
[2018-01-08] MEDS: METOPROLOL 1 MG/ML, 5ML IVPush PRN ×2 (17:06→21:05)
[2018-01-08] MEDS ORDERED: WARFARIN 7.5 MG TABLET PO-COUM ONE (18:00)
[2018-01-08] MEDS: ATORVASTATIN 80 MG TABLET PO SCH (21:05)
[2018-01-09] MEDS: METOPROLOL 1 MG/ML, 5ML IVPush PRN ×2 (00:42→20:00)
[2018-01-09] MEDS: LEVETIRACETAM 750 MG in SODIUM CHLORIDE 0.9% 100 ML IV SCH ×3 (00:42→23:58)
[2018-01-09 04:00] VITALS: BP 110/59
[2018-01-09 04:41] LABS: BASOPHILS # (AUTO) 0.03 x10^3/uL (0-0.1); BASOPHILS % (AUTO) 0 % (0-1); EOSINOPHILS # (AUTO) 0.46 x10^3/uL (0-0.4); EOSINOPHILS % (AUTO) 6 % (1-7); LYMPHOCYTES # (AUTO) 1.23 x10^3/uL (1-3.4); LYMPHOCYTES % (AUTO) 15 % (22-44); MD NO; MEAN CORPUSCULAR HEMOGLOBIN 32.9 pg (27.5-34.5); MEAN CORPUSCULAR HGB CONC 33.8 g/dL (33.2-36.2); MEAN CORPUSCULAR VOLUME 97.3 fL (81-97); MEAN PLATELET VOLUME 6.9 fL (7.4-10.4); MONOCYTES # (AUTO) 0.82 x10^3/uL (0.2-0.8); MONOCYTES % (AUTO) 10 % (2-9); NEUTROPHILS # (AUTO) 5.88 x10^3/uL (1.8-6.8); NEUTROPHILS % (AUTO) 70 % (42-75); PLATELET COUNT 387 x10^3/uL (130-400); RED BLOOD COUNT 3.98 x10^6/uL (4.38-5.82); RED CELL DISTRIBUTION WIDTH 15.3 % (9.4-14.8)
[2018-01-09 04:51] LABS: ALBUMIN 2.7 g/dL (3.4-5.0); ANION GAP 5 mmol/L (5-15); CALCIUM 8.6 mg/dL (8.5-10.1); CHLORIDE 107 mmol/L (98-107)
[2018-01-09 04:56] LABS: ALANINE AMINOTRANSFERASE 166 U/L (12-78); ALKALINE PHOSPHATASE 164 U/L (45-117); BILIRUBIN,TOTAL 0.9 mg/dL (0.2-1.0); CREATININE 0.57 mg/dL (0.7-1.3); TOTAL PROTEIN 6.4 g/dL (6.4-8.2)
[2018-01-09 05:21] LABS: INTERNATIONAL NORMALIZED RATIO 1.35 (0.93-1.1)
[2018-01-09] MEDS: ALBUTEROL/IPRATROPIUM 2.5MG/0.5MG, 3 ML IPPB SCH (07:00)
[2018-01-09] MEDS: SODIUM CHLORIDE FLUSH 10ML SYR IVF SCH ×2 (09:00→21:00)
[2018-01-09] MEDS: DIGOXIN 0.125 MG TABLET PO SCH (09:45)
[2018-01-09] MEDS: FOLIC ACID 1 MG TABLET NG SCH (09:46)
[2018-01-09] MEDS: ENOXAPARIN 40 MG/0.4 ML SQ SCH (09:47)
[2018-01-09] MEDS: PANTOPRAZOLE 40 MG IV IVPush SCH (09:47)
[2018-01-09] MEDS: DOCUSATE 50 MG/5 ML, 10ML UDC GT SCH ×2 (09:48→20:00)
[2018-01-09] MEDS ORDERED: ALBUTEROL/IPRATROPIUM 2.5MG/0.5MG, 3 ML NPPB PRN (11:30)
[2018-01-09] MEDS: SODIUM CHLORIDE 0.9% 1,000 ML IV SCH (13:02)
[2018-01-09] MEDS ORDERED: WARFARIN 7.5 MG TABLET PO-COUM ONE (18:00)
[2018-01-09] MEDS: ATORVASTATIN 80 MG TABLET PO SCH (19:59)
[2018-01-10 04:00] VITALS: BP 99/46
[2018-01-10 04:24] LABS: BASOPHILS # (AUTO) 0.06 x10^3/uL (0-0.1); BASOPHILS % (AUTO) 1 % (0-1); EOSINOPHILS % (AUTO) 7 % (1-7); LYMPHOCYTES # (AUTO) 1.34 x10^3/uL (1-3.4); LYMPHOCYTES % (AUTO) 19 % (22-44); MD NO; MEAN CORPUSCULAR HEMOGLOBIN 32.6 pg (27.5-34.5); MEAN CORPUSCULAR HGB CONC 33.2 g/dL (33.2-36.2); MEAN CORPUSCULAR VOLUME 98.3 fL (81-97); MEAN PLATELET VOLUME 7.2 fL (7.4-10.4); MONOCYTES # (AUTO) 0.74 x10^3/uL (0.2-0.8); MONOCYTES % (AUTO) 10 % (2-9); NEUTROPHILS % (AUTO) 64 % (42-75); PLATELET COUNT 376 x10^3/uL (130-400); RED BLOOD COUNT 3.78 x10^6/uL (4.38-5.82); RED CELL DISTRIBUTION WIDTH 15.1 % (9.4-14.8)
[2018-01-10 04:29] LABS: INTERNATIONAL NORMALIZED RATIO 1.58 (0.93-1.1); PROTHROMBIN TIME 16.3 Seconds (9.6-11.5)
[2018-01-10 04:34] LABS: ALBUMIN 2.5 g/dL (3.4-5.0); ANION GAP 4 mmol/L (5-15); CALCIUM 8.4 mg/dL (8.5-10.1); CHLORIDE 106 mmol/L (98-107)
[2018-01-10 04:37] LABS: ALANINE AMINOTRANSFERASE 120 U/L (12-78); ALKALINE PHOSPHATASE 154 U/L (45-117); BILIRUBIN,TOTAL 0.3 mg/dL (0.2-1.0); CREATININE 0.54 mg/dL (0.7-1.3); TOTAL PROTEIN 5.8 g/dL (6.4-8.2)
[2018-01-10] MEDS: FOLIC ACID 1 MG TABLET NG SCH (08:33)
[2018-01-10] MEDS: DIGOXIN 0.125 MG TABLET PO SCH (08:33)
[2018-01-10] MEDS: POLYETHYLENE GLYCOL 17 GM PACKET PO PRN (08:33)
[2018-01-10] MEDS: DOCUSATE 50 MG/5 ML, 10ML UDC GT SCH ×2 (08:33→20:55)
[2018-01-10] MEDS: ENOXAPARIN 40 MG/0.4 ML SQ SCH (08:34)
[2018-01-10] MEDS: SODIUM CHLORIDE FLUSH 10ML SYR IVF SCH ×2 (08:34→20:56)
[2018-01-10] MEDS: PANTOPRAZOLE 40 MG IV IVPush SCH (08:34)
[2018-01-10] MEDS: SODIUM CHLORIDE 0.9% 1,000 ML IV SCH (13:00)
[2018-01-10] MEDS: LEVETIRACETAM 500 MG in SODIUM CHLORIDE 0.9% 100 ML IV SCH ×2 (13:17→23:48)
[2018-01-10] MEDS: METOPROLOL 1 MG/ML, 5ML IVPush PRN ×2 (14:49→19:14)
[2018-01-10] MEDS: ATORVASTATIN 80 MG TABLET PO SCH (20:55)
[2018-01-10] MEDS: APIXABAN 5 MG TABLET PO SCH (20:55)
[2018-01-10] MEDS ORDERED: LEVETIRACETAM 100 MG/ML, 5ML IVPush SCH (21:00)
[2018-01-11 04:00] VITALS: BP 106/60
[2018-01-11 04:19] LABS: INTERNATIONAL NORMALIZED RATIO 1.76 (0.93-1.1); PROTHROMBIN TIME 18.1 Seconds (9.6-11.5)
[2018-01-11 04:24] LABS: ALANINE AMINOTRANSFERASE 100 U/L (12-78); ALBUMIN 2.7 g/dL (3.4-5.0); ANION GAP 5 mmol/L (5-15); CALCIUM 8.3 mg/dL (8.5-10.1); CHLORIDE 106 mmol/L (98-107); CREATININE 0.58 mg/dL (0.7-1.3)
[2018-01-11 04:26] LABS: ALKALINE PHOSPHATASE 168 U/L (45-117); BILIRUBIN,TOTAL 0.3 mg/dL (0.2-1.0); TOTAL PROTEIN 6.1 g/dL (6.4-8.2)
[2018-01-11 04:34] LABS: BASOPHILS # (AUTO) 0.04 x10^3/uL (0-0.1); BASOPHILS % (AUTO) 1 % (0-1); EOSINOPHILS # (AUTO) 0.35 x10^3/uL (0-0.4); EOSINOPHILS % (AUTO) 5 % (1-7); LYMPHOCYTES % (AUTO) 19 % (22-44); MD NO; MEAN CORPUSCULAR HEMOGLOBIN 32.9 pg (27.5-34.5); MEAN CORPUSCULAR HGB CONC 33.4 g/dL (33.2-36.2); MEAN CORPUSCULAR VOLUME 98.3 fL (81-97); MEAN PLATELET VOLUME 7.5 fL (7.4-10.4); MONOCYTES # (AUTO) 0.74 x10^3/uL (0.2-0.8); MONOCYTES % (AUTO) 10 % (2-9); NEUTROPHILS # (AUTO) 4.85 x10^3/uL (1.8-6.8); NEUTROPHILS % (AUTO) 66 % (42-75); PLATELET COUNT 372 x10^3/uL (130-400); RED BLOOD COUNT 3.84 x10^6/uL (4.38-5.82); RED CELL DISTRIBUTION WIDTH 15.4 % (9.4-14.8)
[2018-01-11] MEDS ORDERED: MAGNESIUM SULFATE PMX 2GM/50ML 50 ML IV ONE (07:30)
[2018-01-11] MEDS: DIGOXIN 0.125 MG TABLET PO SCH (07:44)
[2018-01-11] MEDS: POLYETHYLENE GLYCOL 17 GM PACKET PO PRN (07:44)
[2018-01-11] MEDS: DOCUSATE 50 MG/5 ML, 10ML UDC GT SCH ×2 (07:44→21:12)
[2018-01-11] MEDS: FOLIC ACID 1 MG TABLET NG SCH (07:44)
[2018-01-11] MEDS: APIXABAN 5 MG TABLET PO SCH ×2 (07:44→19:50)
[2018-01-11] MEDS: SODIUM CHLORIDE FLUSH 10ML SYR IVF SCH ×2 (09:04→21:12)
[2018-01-11] MEDS: PANTOPRAZOLE 40 MG IV IVPush SCH (09:04)
[2018-01-11] MEDS: LEVETIRACETAM 500 MG in SODIUM CHLORIDE 0.9% 100 ML IV SCH ×2 (12:15→23:52)
[2018-01-11] MEDS: METOPROLOL 1 MG/ML, 5ML IVPush PRN ×2 (16:19→22:25)
[2018-01-11] MEDS: ATORVASTATIN 80 MG TABLET PO SCH (21:12)
[2018-01-12 04:00] VITALS: BP 94/61
[2018-01-12 04:40] LABS: INTERNATIONAL NORMALIZED RATIO 1.66 (0.93-1.1); PROTHROMBIN TIME 17.1 Seconds (9.6-11.5)
[2018-01-12] MEDS ORDERED: MAGNESIUM SULFATE PMX 2GM/50ML 50 ML IV ONE (07:30)
[2018-01-12] MEDS: DIGOXIN 0.125 MG TABLET PO SCH (08:43)
[2018-01-12] MEDS: DOCUSATE 50 MG/5 ML, 10ML UDC GT SCH ×2 (08:43→21:17)
[2018-01-12] MEDS: FOLIC ACID 1 MG TABLET NG SCH (08:43)
[2018-01-12] MEDS: APIXABAN 5 MG TABLET PO SCH ×2 (08:43→21:17)
[2018-01-12] MEDS: PANTOPRAZOLE 40 MG IV IVPush SCH (08:43)
[2018-01-12] MEDS: SODIUM CHLORIDE FLUSH 10ML SYR IVF SCH ×2 (08:44→21:00)
[2018-01-12] MEDS: POLYETHYLENE GLYCOL 17 GM PACKET PO PRN (10:18)
[2018-01-12] MEDS ORDERED: DIGOXIN 0.25 MG/ML, 2ML IVPush ONE (12:00)
[2018-01-12] MEDS: LEVETIRACETAM 500 MG in SODIUM CHLORIDE 0.9% 100 ML IV SCH (12:38)
[2018-01-12] MEDS: METOPROLOL 1 MG/ML, 5ML IVPush PRN ×2 (13:33→15:52)
[2018-01-12 14:30] VITALS: BP 119/75
[2018-01-12 16:31] VITALS: BP 147/94
[2018-01-12 18:19] VITALS: BP 111/84
[2018-01-12] MEDS: ATORVASTATIN 80 MG TABLET PO SCH (21:17)
[2018-01-13] MEDS: LEVETIRACETAM 500 MG in SODIUM CHLORIDE 0.9% 100 ML IV SCH ×2 (00:12→13:19)
[2018-01-13 01:27] VITALS: BP 117/72
[2018-01-13] MEDS: METOPROLOL 1 MG/ML, 5ML IVPush PRN ×2 (01:33→23:16)
[2018-01-13 02:12] VITALS: BP 105/64
[2018-01-13 08:15] VITALS: BP 102/58
[2018-01-13] MEDS: SODIUM CHLORIDE FLUSH 10ML SYR IVF SCH ×2 (09:00→20:58)
[2018-01-13] MEDS: POLYETHYLENE GLYCOL 17 GM PACKET PO PRN (09:06)
[2018-01-13] MEDS: PANTOPRAZOLE 40 MG IV IVPush SCH (09:06)
[2018-01-13] MEDS: DOCUSATE 50 MG/5 ML, 10ML UDC GT SCH ×2 (09:06→20:58)
[2018-01-13] MEDS: APIXABAN 5 MG TABLET PO SCH ×2 (09:06→20:58)
[2018-01-13] MEDS: DIGOXIN 0.125 MG TABLET PO SCH (09:06)
[2018-01-13] MEDS: FOLIC ACID 1 MG TABLET NG SCH (09:06)
[2018-01-13 13:27] VITALS: BP 119/75
[2018-01-13 19:51] VITALS: BP 116/58
[2018-01-13] MEDS: ATORVASTATIN 80 MG TABLET PO SCH (20:58)
[2018-01-13] MEDS: BISACODYL 10 MG SUPP PR PRN (22:26)
[2018-01-13 23:11] VITALS: BP 127/69
[2018-01-14 00:04] VITALS: BP 103/66
[2018-01-14] MEDS: LEVETIRACETAM 500 MG in SODIUM CHLORIDE 0.9% 100 ML IV SCH ×3 (00:44→23:45)
[2018-01-14 04:45] LABS: ALANINE AMINOTRANSFERASE 68 U/L (12-78); ALBUMIN 2.9 g/dL (3.4-5.0); ANION GAP 7 mmol/L (5-15); CALCIUM 8.7 mg/dL (8.5-10.1); CHLORIDE 104 mmol/L (98-107); CREATININE 0.73 mg/dL (0.7-1.3)
[2018-01-14 04:47] LABS: ALKALINE PHOSPHATASE 162 U/L (45-117); BILIRUBIN,TOTAL 0.6 mg/dL (0.2-1.0); TOTAL PROTEIN 6.3 g/dL (6.4-8.2)
[2018-01-14 04:59] LABS: BASOPHILS # (AUTO) 0.07 x10^3/uL (0-0.1); BASOPHILS % (AUTO) 1 % (0-1); EOSINOPHILS # (AUTO) 0.21 x10^3/uL (0-0.4); EOSINOPHILS % (AUTO) 2 % (1-7); LYMPHOCYTES # (AUTO) 1.27 x10^3/uL (1-3.4); LYMPHOCYTES % (AUTO) 11 % (22-44); MD NO; MEAN CORPUSCULAR HEMOGLOBIN 32.9 pg (27.5-34.5); MEAN CORPUSCULAR HGB CONC 33.5 g/dL (33.2-36.2); MEAN CORPUSCULAR VOLUME 98.3 fL (81-97); MEAN PLATELET VOLUME 7.7 fL (7.4-10.4); MONOCYTES % (AUTO) 8 % (2-9); NEUTROPHILS # (AUTO) 9.42 x10^3/uL (1.8-6.8); NEUTROPHILS % (AUTO) 79 % (42-75); PLATELET COUNT 368 x10^3/uL (130-400); RED BLOOD COUNT 4.17 x10^6/uL (4.38-5.82); RED CELL DISTRIBUTION WIDTH 15.7 % (9.4-14.8)
[2018-01-14 07:49] VITALS: BP 90/54
[2018-01-14] MEDS: APIXABAN 5 MG TABLET PO SCH ×2 (08:10→20:49)
[2018-01-14] MEDS: DIGOXIN 0.125 MG TABLET PO SCH (08:10)
[2018-01-14] MEDS: DOCUSATE 50 MG/5 ML, 10ML UDC GT SCH ×2 (08:11→20:49)
[2018-01-14] MEDS: FOLIC ACID 1 MG TABLET NG SCH (08:11)
[2018-01-14] MEDS: SODIUM CHLORIDE FLUSH 10ML SYR IVF SCH ×2 (08:11→20:50)
[2018-01-14] MEDS: PANTOPRAZOLE 40 MG IV IVPush SCH (09:50)
[2018-01-14 12:52] VITALS: BP 96/65
[2018-01-14 18:39] VITALS: BP 106/60
[2018-01-14] MEDS: ATORVASTATIN 80 MG TABLET PO SCH (20:49)
[2018-01-15 00:55] VITALS: BP 117/62
[2018-01-15 05:36] LABS: BASOPHILS # (AUTO) 0.04 x10^3/uL (0-0.1); BASOPHILS % (AUTO) 0 % (0-1); EOSINOPHILS # (AUTO) 0.36 x10^3/uL (0-0.4); EOSINOPHILS % (AUTO) 3 % (1-7); LYMPHOCYTES # (AUTO) 1.67 x10^3/uL (1-3.4); LYMPHOCYTES % (AUTO) 16 % (22-44); MD NO; MEAN CORPUSCULAR HGB CONC 33.6 g/dL (33.2-36.2); MEAN PLATELET VOLUME 7.7 fL (7.4-10.4); MONOCYTES # (AUTO) 1.11 x10^3/uL (0.2-0.8); MONOCYTES % (AUTO) 11 % (2-9); NEUTROPHILS # (AUTO) 7.34 x10^3/uL (1.8-6.8); NEUTROPHILS % (AUTO) 70 % (42-75); PLATELET COUNT 336 x10^3/uL (130-400); RED BLOOD COUNT 4.13 x10^6/uL (4.38-5.82); RED CELL DISTRIBUTION WIDTH 15.6 % (9.4-14.8)
[2018-01-15 08:16] VITALS: BP 119/79
[2018-01-15] MEDS: FOLIC ACID 1 MG TABLET NG SCH (08:18)
[2018-01-15] MEDS: DIGOXIN 0.125 MG TABLET PO SCH (08:19)
[2018-01-15] MEDS: APIXABAN 5 MG TABLET PO SCH ×2 (08:19→21:18)
[2018-01-15] MEDS: SODIUM CHLORIDE FLUSH 10ML SYR IVF SCH ×2 (08:20→21:18)
[2018-01-15] MEDS: PANTOPRAZOLE 40 MG IV IVPush SCH (10:06)
[2018-01-15] MEDS: DOCUSATE 50 MG/5 ML, 10ML UDC GT SCH ×2 (12:03→21:18)
[2018-01-15] MEDS: LEVETIRACETAM 500 MG in SODIUM CHLORIDE 0.9% 100 ML IV SCH (12:03)
[2018-01-15 13:31] VITALS: BP 127/70
[2018-01-15 19:25] VITALS: BP 120/63
[2018-01-15] MEDS: ATORVASTATIN 80 MG TABLET PO SCH (21:18)
[2018-01-16] MEDS: LEVETIRACETAM 500 MG in SODIUM CHLORIDE 0.9% 100 ML IV SCH ×2 (00:09→14:17)
[2018-01-16 01:29] VITALS: BP 108/66
[2018-01-16 05:40] LABS: BASOPHILS # (AUTO) 0.07 x10^3/uL (0-0.1); BASOPHILS % (AUTO) 1 % (0-1); EOSINOPHILS # (AUTO) 0.29 x10^3/uL (0-0.4); EOSINOPHILS % (AUTO) 3 % (1-7); LYMPHOCYTES # (AUTO) 1.59 x10^3/uL (1-3.4); LYMPHOCYTES % (AUTO) 14 % (22-44); MD NO; MEAN CORPUSCULAR HEMOGLOBIN 33.1 pg (27.5-34.5); MEAN CORPUSCULAR HGB CONC 33.7 g/dL (33.2-36.2); MEAN CORPUSCULAR VOLUME 98.2 fL (81-97); MEAN PLATELET VOLUME 7.4 fL (7.4-10.4); MONOCYTES # (AUTO) 1.04 x10^3/uL (0.2-0.8); MONOCYTES % (AUTO) 9 % (2-9); NEUTROPHILS # (AUTO) 8.29 x10^3/uL (1.8-6.8); NEUTROPHILS % (AUTO) 74 % (42-75); PLATELET COUNT 343 x10^3/uL (130-400); RED BLOOD COUNT 4.15 x10^6/uL (4.38-5.82); RED CELL DISTRIBUTION WIDTH 15.7 % (9.4-14.8)
[2018-01-16 05:52] LABS: CHLORIDE 105 mmol/L (98-107)
[2018-01-16 05:59] LABS: ALANINE AMINOTRANSFERASE 57 U/L (12-78); ALBUMIN 3.1 g/dL (3.4-5.0); ALKALINE PHOSPHATASE 157 U/L (45-117); BILIRUBIN,TOTAL 1.3 mg/dL (0.2-1.0); CALCIUM 8.9 mg/dL (8.5-10.1); CREATININE 0.72 mg/dL (0.7-1.3); TOTAL PROTEIN 6.5 g/dL (6.4-8.2)
[2018-01-16 06:02] LABS: ANION GAP 6 mmol/L (5-15)
[2018-01-16 08:12] VITALS: BP 103/79
[2018-01-16] MEDS: PANTOPRAZOLE 40 MG IV IVPush SCH (09:59)
[2018-01-16] MEDS: APIXABAN 5 MG TABLET PO SCH ×2 (10:11→21:12)
[2018-01-16] MEDS: DIGOXIN 0.125 MG TABLET PO SCH (10:15)
[2018-01-16] MEDS: FOLIC ACID 1 MG TABLET NG SCH (10:16)
[2018-01-16] MEDS: DOCUSATE 50 MG/5 ML, 10ML UDC GT SCH ×2 (10:17→21:12)
[2018-01-16 14:07] VITALS: BP 110/73
[2018-01-16 20:03] VITALS: BP 108/66
[2018-01-16] MEDS: ATORVASTATIN 80 MG TABLET PO SCH (21:12)
[2018-01-16] MEDS: SODIUM CHLORIDE FLUSH 10ML SYR IVF SCH (21:12)
[2018-01-17 00:15] VITALS: BP 105/60
[2018-01-17] MEDS: LEVETIRACETAM 500 MG in SODIUM CHLORIDE 0.9% 100 ML IV SCH ×2 (01:10→13:13)
[2018-01-17 06:27] VITALS: BP 100/55
[2018-01-17] MEDS: PANTOPRAZOLE 40 MG IV IVPush SCH (08:43)
[2018-01-17] MEDS: FOLIC ACID 1 MG TABLET NG SCH (08:44)
[2018-01-17] MEDS: DIGOXIN 0.125 MG TABLET PO SCH (08:44)
[2018-01-17] MEDS: APIXABAN 5 MG TABLET PO SCH ×2 (08:44→21:05)
[2018-01-17] MEDS: SODIUM CHLORIDE FLUSH 10ML SYR IVF SCH ×2 (09:00→21:06)
[2018-01-17] MEDS: DOCUSATE 50 MG/5 ML, 10ML UDC GT SCH ×2 (09:00→21:05)
[2018-01-17 10:44] LABS: BASOPHILS # (AUTO) 0.03 x10^3/uL (0-0.1); BASOPHILS % (AUTO) 0 % (0-1); EOSINOPHILS # (AUTO) 0.35 x10^3/uL (0-0.4); EOSINOPHILS % (AUTO) 3 % (1-7); LYMPHOCYTES # (AUTO) 1.07 x10^3/uL (1-3.4); LYMPHOCYTES % (AUTO) 10 % (22-44); MD NO; MEAN CORPUSCULAR HEMOGLOBIN 33.4 pg (27.5-34.5); MEAN CORPUSCULAR HGB CONC 33.5 g/dL (33.2-36.2); MEAN CORPUSCULAR VOLUME 99.7 fL (81-97); MEAN PLATELET VOLUME 7.6 fL (7.4-10.4); MONOCYTES # (AUTO) 0.74 x10^3/uL (0.2-0.8); MONOCYTES % (AUTO) 7 % (2-9); NEUTROPHILS # (AUTO) 8.78 x10^3/uL (1.8-6.8); NEUTROPHILS % (AUTO) 80 % (42-75); PLATELET COUNT 320 x10^3/uL (130-400); RED BLOOD COUNT 4.07 x10^6/uL (4.38-5.82); RED CELL DISTRIBUTION WIDTH 16.2 % (9.4-14.8)
[2018-01-17 10:49] LABS: ALANINE AMINOTRANSFERASE 49 U/L (12-78); ALBUMIN 2.9 g/dL (3.4-5.0); ANION GAP 8 mmol/L (5-15); CALCIUM 8.7 mg/dL (8.5-10.1); CHLORIDE 105 mmol/L (98-107); CREATININE 0.87 mg/dL (0.7-1.3)
[2018-01-17 10:52] LABS: ALKALINE PHOSPHATASE 152 U/L (45-117); BILIRUBIN,TOTAL 1.2 mg/dL (0.2-1.0); TOTAL PROTEIN 6.3 g/dL (6.4-8.2)
[2018-01-17 12:04] VITALS: BP 101/64
[2018-01-17 20:56] VITALS: BP 100/63
[2018-01-17] MEDS: ATORVASTATIN 80 MG TABLET PO SCH (21:05)
[2018-01-18 00:28] VITALS: BP 113/68
[2018-01-18] MEDS: LEVETIRACETAM 500 MG in SODIUM CHLORIDE 0.9% 100 ML IV SCH ×3 (00:32→23:42)
[2018-01-18 05:23] LABS: CHLORIDE 108 mmol/L (98-107)
[2018-01-18 05:24] LABS: BASOPHILS # (AUTO) 0.08 x10^3/uL (0-0.1); BASOPHILS % (AUTO) 1 % (0-1); EOSINOPHILS # (AUTO) 0.45 x10^3/uL (0-0.4); EOSINOPHILS % (AUTO) 6 % (1-7); LYMPHOCYTES # (AUTO) 1.59 x10^3/uL (1-3.4); LYMPHOCYTES % (AUTO) 19 % (22-44); MD NO; MEAN CORPUSCULAR HEMOGLOBIN 33.3 pg (27.5-34.5); MEAN CORPUSCULAR HGB CONC 33.7 g/dL (33.2-36.2); MEAN CORPUSCULAR VOLUME 98.8 fL (81-97); MEAN PLATELET VOLUME 7.7 fL (7.4-10.4); MONOCYTES # (AUTO) 0.82 x10^3/uL (0.2-0.8); MONOCYTES % (AUTO) 10 % (2-9); NEUTROPHILS # (AUTO) 5.32 x10^3/uL (1.8-6.8); NEUTROPHILS % (AUTO) 64 % (42-75); PLATELET COUNT 299 x10^3/uL (130-400); RED CELL DISTRIBUTION WIDTH 15.7 % (9.4-14.8)
[2018-01-18 05:33] LABS: ALANINE AMINOTRANSFERASE 42 U/L (12-78); ALBUMIN 2.9 g/dL (3.4-5.0); ALKALINE PHOSPHATASE 142 U/L (45-117); ANION GAP 7 mmol/L (5-15); BILIRUBIN,TOTAL 0.9 mg/dL (0.2-1.0); CALCIUM 8.5 mg/dL (8.5-10.1); TOTAL PROTEIN 6.2 g/dL (6.4-8.2)
[2018-01-18 07:16] VITALS: BP 103/62
[2018-01-18] MEDS: FOLIC ACID 1 MG TABLET NG SCH (08:39)
[2018-01-18] MEDS: DIGOXIN 0.125 MG TABLET PO SCH (08:39)
[2018-01-18] MEDS: PANTOPRAZOLE 40 MG IV IVPush SCH (08:39)
[2018-01-18] MEDS: APIXABAN 5 MG TABLET PO SCH ×3 (08:39→22:28)
[2018-01-18] MEDS: SODIUM CHLORIDE FLUSH 10ML SYR IVF SCH ×3 (08:40→22:28)
[2018-01-18] MEDS: DOCUSATE 50 MG/5 ML, 10ML UDC GT SCH ×3 (08:40→22:28)
[2018-01-18 13:42] VITALS: BP 102/69
[2018-01-18] MEDS: HALOPERIDOL 5 MG/ML IM PRN (17:55)
[2018-01-18 19:07] VITALS: BP 98/65
[2018-01-18 20:51] VITALS: BP 113/56
[2018-01-18] MEDS: ATORVASTATIN 80 MG TABLET PO SCH ×2 (21:00→22:28)
[2018-01-19 03:13] VITALS: BP 124/63
[2018-01-19] MEDS: DIGOXIN 0.125 MG TABLET PO SCH ×2 (08:59→09:00)
[2018-01-19] MEDS: FOLIC ACID 1 MG TABLET NG SCH (09:00)
[2018-01-19] MEDS: PANTOPRAZOLE 40 MG IV IVPush SCH (09:00)
[2018-01-19 09:04] VITALS: BP 105/55
[2018-01-19] MEDS: LEVETIRACETAM 500 MG in SODIUM CHLORIDE 0.9% 100 ML IV SCH (11:19)
[2018-01-19] MEDS: QUETIAPINE 25MG TABLET PO SCH ×2 (11:22→22:13)
[2018-01-19 12:22] VITALS: BP 102/68
[2018-01-19 18:57] VITALS: BP 103/66
[2018-01-19] MEDS ORDERED: QUETIAPINE 100MG TABLET ONE (22:08)
[2018-01-19] MEDS: DOCUSATE 50 MG/5 ML, 10ML UDC GT SCH (22:12)
[2018-01-19] MEDS: APIXABAN 5 MG TABLET PO SCH (22:12)
[2018-01-19] MEDS: SODIUM CHLORIDE FLUSH 10ML SYR IVF SCH (22:13)
[2018-01-19] MEDS: ATORVASTATIN 80 MG TABLET PO SCH (22:13)
[2018-01-20] VITALS (13 sets, daily range): BP systolic 104–121; BP diastolic 58–88
[2018-01-20] MEDS: LEVETIRACETAM 500 MG in SODIUM CHLORIDE 0.9% 100 ML IV SCH ×2 (00:10→13:31)
[2018-01-20] MEDS: POLYETHYLENE GLYCOL 17 GM PACKET PO PRN (05:17)
[2018-01-20] MEDS: PANTOPRAZOLE 40 MG IV IVPush SCH (08:37)
[2018-01-20] MEDS: SODIUM CHLORIDE FLUSH 10ML SYR IVF SCH ×2 (08:38→22:35)
[2018-01-20] MEDS: APIXABAN 5 MG TABLET PO SCH ×2 (08:38→22:33)
[2018-01-20] MEDS: DOCUSATE 50 MG/5 ML, 10ML UDC GT SCH ×2 (08:38→22:33)
[2018-01-20] MEDS: FOLIC ACID 1 MG TABLET NG SCH (08:38)
[2018-01-20] MEDS: DIGOXIN 0.125 MG TABLET PO SCH (08:38)
[2018-01-20] MEDS: QUETIAPINE 25MG TABLET PO SCH ×2 (08:39→21:40)
[2018-01-20] MEDS: METOPROLOL 1 MG/ML, 5ML IVPush PRN (21:35)
[2018-01-20] MEDS: HALOPERIDOL 5 MG/ML IM PRN (21:44)
[2018-01-20] MEDS: ATORVASTATIN 80 MG TABLET PO SCH (22:33)
[2018-01-21] MEDS: LEVETIRACETAM 500 MG in SODIUM CHLORIDE 0.9% 100 ML IV SCH ×2 (00:24→13:19)
[2018-01-21 00:44] VITALS: BP 115/67
[2018-01-21 07:55] VITALS: BP 103/63
[2018-01-21] MEDS: SODIUM CHLORIDE FLUSH 10ML SYR IVF SCH ×2 (08:07→21:08)
[2018-01-21] MEDS: PANTOPRAZOLE 40 MG IV IVPush SCH (08:07)
[2018-01-21] MEDS: APIXABAN 5 MG TABLET PO SCH ×2 (09:00→21:06)
[2018-01-21] MEDS: DIGOXIN 0.125 MG TABLET PO SCH (09:00)
[2018-01-21] MEDS: FOLIC ACID 1 MG TABLET NG SCH (09:00)
[2018-01-21] MEDS: QUETIAPINE 25MG TABLET PO SCH ×2 (09:00→21:06)
[2018-01-21] MEDS: DOCUSATE 50 MG/5 ML, 10ML UDC GT SCH ×2 (09:00→21:05)
[2018-01-21] MEDS: POLYETHYLENE GLYCOL 17 GM PACKET PO PRN (13:26)
[2018-01-21 14:23] VITALS: BP 106/67
[2018-01-21] MEDS: BISACODYL 10 MG SUPP PR PRN (17:08)
[2018-01-21 19:04] VITALS: BP 117/88
[2018-01-21] MEDS ORDERED: DILTIAZEM 5 MG/ML, 5ML IVPush ONE ×2 (20:00)
[2018-01-21] MEDS ORDERED: METOPROLOL 1 MG/ML, 5ML IVPush ONE (20:30)
[2018-01-21] MEDS: ATORVASTATIN 80 MG TABLET PO SCH (21:10)
[2018-01-22] VITALS (7 sets, daily range): BP systolic 100–133; BP diastolic 48–74
[2018-01-22] MEDS: LEVETIRACETAM 500 MG in SODIUM CHLORIDE 0.9% 100 ML IV SCH ×2 (00:14→12:36)
[2018-01-22] MEDS: METOPROLOL 1 MG/ML, 5ML IVPush PRN (01:16)
[2018-01-22 08:20] LABS: BASOPHILS # (AUTO) 0.12 x10^3/uL (0-0.1); BASOPHILS % (AUTO) 1 % (0-1); EOSINOPHILS # (AUTO) 0.52 x10^3/uL (0-0.4); EOSINOPHILS % (AUTO) 6 % (1-7); LYMPHOCYTES # (AUTO) 1.76 x10^3/uL (1-3.4); LYMPHOCYTES % (AUTO) 19 % (22-44); MD NO; MEAN CORPUSCULAR HEMOGLOBIN 33.1 pg (27.5-34.5); MEAN CORPUSCULAR HGB CONC 33.5 g/dL (33.2-36.2); MEAN CORPUSCULAR VOLUME 98.9 fL (81-97); MEAN PLATELET VOLUME 7.2 fL (7.4-10.4); MONOCYTES # (AUTO) 0.96 x10^3/uL (0.2-0.8); MONOCYTES % (AUTO) 11 % (2-9); NEUTROPHILS % (AUTO) 63 % (42-75); PLATELET COUNT 261 x10^3/uL (130-400); RED BLOOD COUNT 3.95 x10^6/uL (4.38-5.82); RED CELL DISTRIBUTION WIDTH 15.6 % (9.4-14.8)
[2018-01-22 08:31] LABS: ALANINE AMINOTRANSFERASE 42 U/L (12-78); ALBUMIN 2.9 g/dL (3.4-5.0); ANION GAP 8 mmol/L (5-15); CALCIUM 8.3 mg/dL (8.5-10.1); CHLORIDE 109 mmol/L (98-107); CREATININE 0.69 mg/dL (0.7-1.3)
[2018-01-22 08:33] LABS: ALKALINE PHOSPHATASE 139 U/L (45-117); BILIRUBIN,TOTAL 1.2 mg/dL (0.2-1.0); TOTAL PROTEIN 5.9 g/dL (6.4-8.2)
[2018-01-22] MEDS: DOCUSATE 50 MG/5 ML, 10ML UDC GT SCH ×2 (09:24→20:33)
[2018-01-22] MEDS: FOLIC ACID 1 MG TABLET NG SCH (09:25)
[2018-01-22] MEDS: DIGOXIN 0.125 MG TABLET PO SCH (09:27)
[2018-01-22] MEDS: APIXABAN 5 MG TABLET PO SCH ×2 (09:28→20:34)
[2018-01-22] MEDS: PANTOPRAZOLE 40 MG IV IVPush SCH (09:28)
[2018-01-22] MEDS: SODIUM CHLORIDE FLUSH 10ML SYR IVF SCH ×2 (09:34→20:34)
[2018-01-22] MEDS: QUETIAPINE 25MG TABLET PO SCH ×2 (09:41→20:33)
[2018-01-22] MEDS: ATORVASTATIN 80 MG TABLET PO SCH (20:33)
[2018-01-23 00:23] VITALS: BP 104/63
[2018-01-23] MEDS: LEVETIRACETAM 500 MG in SODIUM CHLORIDE 0.9% 100 ML IV SCH ×2 (00:54→11:31)
[2018-01-23 05:55] VITALS: BP 115/73
[2018-01-23] MEDS: METOPROLOL SUCCINATE 25 MG TAB.ER.24H PO SCH ×2 (05:57→09:06)
[2018-01-23 08:00] VITALS: BP 107/69
[2018-01-23] MEDS: FOLIC ACID 1 MG TABLET NG SCH (09:06)
[2018-01-23] MEDS: PANTOPRAZOLE 40 MG IV IVPush SCH (09:07)
[2018-01-23] MEDS: APIXABAN 5 MG TABLET PO SCH ×2 (09:07→20:55)
[2018-01-23] MEDS: SPIRONOLACTONE 25 MG TABLET PO SCH (09:07)
[2018-01-23] MEDS: DIGOXIN 0.125 MG TABLET PO SCH (09:07)
[2018-01-23] MEDS: DOCUSATE 50 MG/5 ML, 10ML UDC GT SCH ×2 (09:07→20:55)
[2018-01-23] MEDS: SODIUM CHLORIDE FLUSH 10ML SYR IVF SCH ×2 (09:08→20:55)
[2018-01-23 14:15] VITALS: BP 106/65
[2018-01-23 19:52] VITALS: BP 109/66
[2018-01-23] MEDS: ATORVASTATIN 80 MG TABLET PO SCH (20:55)
[2018-01-23] MEDS: QUETIAPINE 25MG TABLET PO SCH (20:55)
[2018-01-24] MEDS: LEVETIRACETAM 500 MG in SODIUM CHLORIDE 0.9% 100 ML IV SCH (00:08)
[2018-01-24 02:10] VITALS: BP 110/56
[2018-01-24 04:30] LABS: ANION GAP 7 mmol/L (5-15); CALCIUM 8.5 mg/dL (8.5-10.1); CHLORIDE 109 mmol/L (98-107)
[2018-01-24 04:45] LABS: CREATININE 0.71 mg/dL (0.7-1.3)
[2018-01-24] MEDS: METOPROLOL SUCCINATE 25 MG TAB.ER.24H PO SCH (06:35)
[2018-01-24 07:29] VITALS: BP 105/63
[2018-01-24] MEDS: DIGOXIN 0.125 MG TABLET PO SCH (09:41)
[2018-01-24] MEDS: PANTOPRAZOLE 40 MG IV IVPush SCH (09:41)
[2018-01-24] MEDS: APIXABAN 5 MG TABLET PO SCH ×2 (09:41→20:37)
[2018-01-24] MEDS: SODIUM CHLORIDE FLUSH 10ML SYR IVF SCH ×2 (09:41→20:37)
[2018-01-24] MEDS: FOLIC ACID 1 MG TABLET NG SCH (09:41)
[2018-01-24] MEDS: SPIRONOLACTONE 25 MG TABLET PO SCH (09:41)
[2018-01-24] MEDS: DOCUSATE 50 MG/5 ML, 10ML UDC GT SCH ×2 (09:41→20:37)
[2018-01-24] MEDS: LEVETIRACETAM 500 MG TABLET PO SCH ×2 (11:51→20:37)
[2018-01-24 13:16] VITALS: BP 98/52
[2018-01-24 19:25] VITALS: BP 96/71
[2018-01-24] MEDS: ATORVASTATIN 80 MG TABLET PO SCH (20:37)
[2018-01-24] MEDS: QUETIAPINE 25MG TABLET PO SCH (20:37)
[2018-01-25 01:13] VITALS: BP 109/70
[2018-01-25] MEDS: METOPROLOL SUCCINATE 25 MG TAB.ER.24H PO SCH (05:32)
[2018-01-25 07:19] VITALS: BP 110/67
[2018-01-25] MEDS: SPIRONOLACTONE 25 MG TABLET PO SCH (08:51)
[2018-01-25] MEDS: FOLIC ACID 1 MG TABLET NG SCH (08:51)
[2018-01-25] MEDS: LEVETIRACETAM 500 MG TABLET PO SCH (08:51)
[2018-01-25] MEDS: DIGOXIN 0.125 MG TABLET PO SCH (08:51)
[2018-01-25] MEDS: APIXABAN 5 MG TABLET PO SCH (08:51)
[2018-01-25] MEDS: PANTOPRAZOLE 40 MG IV IVPush SCH (08:52)
[2018-01-25] MEDS: DOCUSATE 50 MG/5 ML, 10ML UDC GT SCH (08:52)
[2018-01-25] MEDS: SODIUM CHLORIDE FLUSH 10ML SYR IVF SCH (08:53)
[2018-01-25 13:20] VITALS: BP 111/79
[2018-01-25] MEDS ORDERED: QUET25TA PO (13:47)
[2018-01-25] MEDS ORDERED: METO25TA91 PO (13:47)
[2018-01-25] MEDS ORDERED: LEVE500T53 PO (13:47)
[2018-01-25] MEDS ORDERED: APIX5TAB PO (13:47)
[2018-01-25] MEDS ORDERED: ATOR-2 PO (13:47)
[2018-01-25] MEDS ORDERED: POLY17PO5 PO (13:47)
[2018-01-25] MEDS ORDERED: ASPI-515 PO (17:30)
== END 2018-01-25 18:46 | DRG 870 ==
LOC: EDBD → MERGE 16:47 → ED 18:28 → EDIP 19:36 → 4EST 21:00 → CCU 12-28 15:22 → 4WST 12-31 11:00 → CCU 01-03 00:32 → 4WST 01-12 14:20 → 5SO 01-14 12:05
PROVIDERS: ADMIT Hospitalist; ATTEND Hospitalist
PROC: 0T9B70Z Drainage of Bladder with Drainage Device, Via Natural or Artificial Opening (ICD-10-PCS; 2017-12-23)
PROC: 5A1955Z Respiratory Ventilation, Greater than 96 Consecutive Hours (ICD-10-PCS; principal; 2018-01-03)
PROC: 0BH18EZ Insertion of Endotracheal Airway into Trachea, Via Natural or Artificial Opening Endoscopic (ICD-10-PCS; 2018-01-03)
PROC: 02HV33Z Insertion of Infusion Device into Superior Vena Cava, Percutaneous Approach (ICD-10-PCS; 2018-01-04)
PROC: B548ZZA Ultrasonography of Superior Vena Cava, Guidance (ICD-10-PCS; 2018-01-04)
DX: A41.9 Sepsis, unspecified organism (principal); G93.40 Encephalopathy, unspecified; E43 Unspecified severe protein-calorie malnutrition; J96.00 Acute respiratory failure, unspecified whether with hypoxia or hypercapnia; J69.0 Pneumonitis due to inhalation of food and vomit; I63.9 Cerebral infarction, unspecified; J98.11 Atelectasis; D68.69 Other thrombophilia; E87.1 Hypo-osmolality and hyponatremia; G40.209 Localization-related (focal) (partial) symptomatic epilepsy and epileptic syndromes with complex partial seizures, not intractable, without status epilepticus; G81.90 Hemiplegia, unspecified affecting unspecified side; I47.2 Ventricular tachycardia; I48.1 Persistent atrial fibrillation; I48.92 Unspecified atrial flutter; R41.4 Neurologic neglect syndrome; Z99.11 Dependence on respirator [ventilator] status; Z68.23 Body mass index [BMI] 23.0-23.9, adult; E78.5 Hyperlipidemia, unspecified; E83.42 Hypomagnesemia; F03.90 Unspecified dementia, unspecified severity, without behavioral disturbance, psychotic disturbance, mood disturbance, and anxiety; I11.9 Hypertensive heart disease without heart failure; I34.0 Nonrheumatic mitral (valve) insufficiency; I48.2 Chronic atrial fibrillation; I70.0 Atherosclerosis of aorta; J32.9 Chronic sinusitis, unspecified; K59.00 Constipation, unspecified; K80.20 Calculus of gallbladder without cholecystitis without obstruction; R13.10 Dysphagia, unspecified; Z51.5 Encounter for palliative care; Z78.1 Physical restraint status; Z79.01 Long term (current) use of anticoagulants; Z79.899 Other long term (current) drug therapy; Z87.891 Personal history of nicotine dependence; I95.9 Hypotension, unspecified
CPT/HCPCS: 36415; 36569; 36600; 70450; 70551; 70553; 71045; 72190; 74018; 74230; 76700; 76937; 77001; 80048; 80053; 80162; 80185; 81001; 82140; 82607; 82746; 82803; 82962; 83605; 83735; 84100; 84145; 84443; 84478; 85025; 85610; 87040; 87070; 87081; 87086; 87205; 93005; 93306; 94002; 94003; 94640; 95816; 95819; A9585; J0295; J0696; J1165; J1650; J1953; J2250; J2543; J2704; J3010; J7060; J7620; 92523-GN; C1751; C9113; J0330; J1160; J1630; J2060; J3475; J7030; J7040; J7050; J7120